=== PATIENT | male | born 1935 | race Caucasian/White ===

== ENCOUNTER 2017-09-07 20:54 | Emergency (ER) | payer OTHER, MEDICARE ==
--- NOTE | 2017-09-07 22:56 | EDPHYS ---
Physician Documentation [facility] Name: Myles Condon III Age: 81 yrs Sex: Male : 1935 Arrival Date: 09/07/2017 Time: 20:58 Bed 18 Private MD: Terrance Wang V ED Physician Chandu Che HPI: 09/08 00:10 This 81 yrs old Male presents to ER via Ambulatory with complaints of Arm jr8 Problem - Redness/swelling. 00:10 The patient or guardian complains of pain, a rash. The complaints affect the dorsal jr8 aspect of left forearm. Context: The problem was sustained at home. Onset: The symptoms/episode began/occurred acutely, 2 day(s) ago. Treatment prior to arrival includes: no previous treatment. Modifying factors: The symptoms are alleviated by nothing. the symptoms are aggravated by touching affected region . Associated signs and symptoms: Pertinent positives: erythema, pain, warmth. Severity of symptoms: At their worst the symptoms were mild, in the emergency department the symptoms are unchanged. The patient has not experienced similar symptoms in the past. The patient has not recently seen a physician. Patient stated that he started with redness to left forearm with pustulous region. Did not know if he was bit by anything or not. Concerned because it still has not gone away . Historical: - Allergies: 09/07 21:06 No Known Allergies; la1 - PMHx: 21:06 AFIB; Hyperlipidemia; Hypertension; urinary problems; la1 - Immunization history:: Adult Immunizations up to date. - Social history:: Smoking status: Patient/guardian denies using tobacco. ROS: 09/08 00:10 Eyes: Negative for injury, pain, redness, and discharge, ENT: Negative for injury, jr8 pain, and discharge, Neck: Negative for injury, pain, and swelling, Cardiovascular: Negative for chest pain, palpitations, and edema, Respiratory: Negative for shortness of breath, cough, wheezing, and pleuritic chest pain, Abdomen/GI: Negative for abdominal pain, nausea, vomiting, diarrhea, and constipation, Back: Negative for injury and pain, MS/Extremity: Negative for injury and deformity, Neuro: Negative for headache, weakness, numbness, tingling, and seizure. Skin: Positive for erythema, lesions, of the left arm. Exam: 00:10 Cardiovascular: Regular rate and rhythm with a normal S1 and S2. No gallops, murmurs, jr8 or rubs. Normal PMI, no JVD. No pulse deficits. Respiratory: Lungs have equal breath sounds bilaterally, clear to auscultation and percussion. No rales, rhonchi or wheezes noted. No increased work of breathing, no retractions or nasal flaring. MS/ Extremity: Pulses equal, no cyanosis. Neurovascular intact. Full, normal range of motion. Neuro: Awake and alert, GCS 15, oriented to person, place, time, and situation. Cranial nerves II-XII grossly intact. Motor strength 5/5 in all extremities. Sensory grossly intact. Cerebellar exam normal. Normal gait. 00:10 Skin: approximately 7.5 cm well demarcated region to left forearm of erythema. In the center is vesicles with exudate in them. No bruising or other rashes or lesion noted to the rest of patients body. Mild pain with palpation. Vital Signs: 09/07 21:06 BP 152 / 72; Pulse 50; Resp 16; Temp 98.6(TE); Pulse Ox 100% on R/A; Weight 101.6 kg; la1 Height 5 ft. 9 in. (175.26 cm); 21:06 Body Mass Index 33.08 (101.60 kg, 175.26 cm) la1 MDM: 22:30 Patient medically screened. jr8 22:55 Data reviewed: vital signs, nurses notes, and as a result, I will discharge patient. jr8 Data interpreted: Pulse oximetry: on room air is 100 %. Interpretation: normal. Counseling: I had a detailed discussion with the patient and/or guardian regarding: the historical points, exam findings, and any diagnostic results supporting the discharge/admit diagnosis, the need for outpatient follow up, a family practitioner, to return to the emergency department if symptoms worsen or persist or if there are any questions or concerns that arise at home. Administered Medications: No medications were administered Disposition: 09/08 00:18 Co-signature as Attending Physician, Chandu Che MD. jimmy Disposition: 09/07/17 22:55 Discharged to Home. Impression: Local infection of the skin and subcutaneous tissue, unspecified. - Condition is Stable. - Discharge Instructions: Abscess, Cellulitis, Rash. - Prescriptions for Keflex 500 mg Oral Capsule - take 1 capsule by ORAL route every 6 hours for 10 days; 40 capsule. - Medication Reconciliation Form, Thank You Letter, Antibiotic Education, Prescription Opioid Use form. - Follow up: Terrance Wang MD; When: 2 - 3 days; Reason: Recheck today's complaints, Continuance of care, Re-evaluation by your physician. - Problem is new. - Symptoms have improved. Signatures: Chandu Che MD MD pkl Moreno Young PA PA jr8 Gonzalez Puga RN RN la1 Sukhwinder Carpenter RN RN jd3
--- NOTE | 2017-09-07 22:56 | ER ---
Nurse's Notes [facility] Name: Myles Condon III Age: 81 yrs Sex: Male : 1935 Arrival Date: 09/07/2017 Time: 20:58 Bed 18 Private MD: Terrance Wang V Diagnosis: Local infection of the skin and subcutaneous tissue, unspecified Presentation: 09/07 21:05 Presenting complaint: Patient states: I have had an are of redness on my left forearm la1 and it is getting worse, area of redness about the size of a baseball on left forearm. Transition of care: patient was not received from another setting of care. Onset of symptoms was September 07, 2017. Care prior to arrival: None. 21:05 Method Of Arrival: Ambulatory la1 21:05 Acuity: MARLO 3 la1 Triage Assessment: 22:46 General: Appears in no apparent distress. Behavior is calm, cooperative, appropriate jd3 for age. Historical: - Allergies: 21:06 No Known Allergies; la1 - PMHx: 21:06 AFIB; Hyperlipidemia; Hypertension; urinary problems; la1 - Immunization history:: Adult Immunizations up to date. - Social history:: Smoking status: Patient/guardian denies using tobacco. Screenin:44 Abuse screen: Denies threats or abuse. Nutritional screening: No deficits noted. jd3 Tuberculosis screening: No symptoms or risk factors identified. Fall Risk None identified. Assessment: 22:39 Pain: Complains of pain in dorsal aspect of left forearm Quality of pain is described jd3 as aching, pressure. Neuro: Level of Consciousness is awake, alert, obeys commands, Oriented to person, place, time, situation. Cardiovascular: Heart tones S1 S2 present Capillary refill < 3 seconds Patient's skin is warm and dry. Respiratory: Airway is patent Respiratory effort is even, unlabored, Respiratory pattern is regular, symmetrical, Breath sounds are clear bilaterally. GI: Abdomen is round Patient currently denies diarrhea, nausea, vomiting. : No signs and/or symptoms were reported regarding the genitourinary system. EENT: No signs and/or symptoms were reported regarding the EENT system. Derm: Skin is intact, Skin is dry, Skin is normal, Skin temperature is warm Wound noted dorsal aspect of right forearm Wound is red raised with macular lesion in the center, to the left forearm. Musculoskeletal: Circulation, motion, and sensation intact. Range of motion: intact in all extremities. 23:05 Reassessment: Patient appears in no apparent distress at this time. Patient and/or jd3 family updated on plan of care and expected duration. Pain level reassessed. Patient is alert, oriented x 3, equal unlabored respirations, skin warm/dry/pink. pt reported understanding of discharge instructions, even and steady gait upon discharge. Vital Signs: 21:06 BP 152 / 72; Pulse 50; Resp 16; Temp 98.6(TE); Pulse Ox 100% on R/A; Weight 101.6 kg; la1 Height 5 ft. 9 in. (175.26 cm); 21:06 Body Mass Index 33.08 (101.60 kg, 175.26 cm) la1 ED Course: 20:58 Patient arrived in ED. am2 20:58 Terrance Wang MD is Private Physician. am2 21:05 Triage completed. la1 21:06 Arm band placed on left wrist. la1 22:30 Moreno Young PA is PHCP. jr8 22:30 Chandu Che MD is Attending Physician. jr8 22:39 Sukhwinder Carpenter RN is Primary Nurse. jd3 22:46 Patient has correct armband on for positive identification. Bed in low position. Call jd3 light in reach. Side rails up X 1. Adult w/ patient. 22:55 Terrance Wang MD is Referral Physician. jr8 23:05 No provider procedures requiring assistance completed. Patient did not have IV access jd3 during this emergency room visit. Administered Medications: No medications were administered Outcome: 22:55 Discharge ordered by . jr8 23:05 Discharged to home ambulatory, with family. jd3 23:05 Condition: stable 23:05 Discharge instructions given to patient, family, Instructed on discharge instructions, follow up and referral plans. medication usage, Demonstrated understanding of instructions, follow-up care, medications, Prescriptions given X 1. 23:07 Patient left the ED. jd3 Signatures: Moreno Young PA PA jrGonzalez Deluca RN RN la1 [employer] am2 Sukhwinder Carpenter RN RN jd3
[2017-09-07 23:11] VITALS: BP 152/72; TEMP 98.6; O2SAT 100
== END 2017-09-07 23:07 | disposition home or self-care (01) ==
LOC: ER 20:54
DX: L08.9 Local infection of the skin and subcutaneous tissue, unspecified (principal)
CPT/HCPCS: 99282

== ENCOUNTER 2018-11-07 09:51 | Observation (INO) | payer OTHER, MEDICARE ==
--- OUTSIDE RECORDS SUMMARY | 2018-11-07 09:54 | XMS REPORT ---
:1935 Author Organization [employer] Care Team Providers Name Role Phone Aaron Sorensen Provider Role Unavailable Allergies, Adverse Reactions, Alerts Substance Reaction Event Type N.K.D.A. 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 Assessment Impingement syndrome of right M75.41 Active shoulder Medications Medication Code Code Instructions Start End Status Dosage System Date Date Dutasteride [facility] [address]-86 Active not defined Centrum Silver [facility] [address]-79 Active not defined Tamsulosin HCl [facility] [address]-26 Active not defined Omeprazole [facility] 84269463933 Active not defined Biotin [facility] [address] Active not defined Simvastatin [facility] [address]-09 Active not defined Melatonin [facility] [address]60-[address]209 Active not defined Donepezil HCl [facility] [address]-64 Active not defined Sotalol HCl [facility] [address]-05 Active not defined Xarelto [facility] [address]-26 Active not defined Results No Known Results Summary Purpose [employer] Submission
--- OUTSIDE RECORDS SUMMARY | 2018-11-07 09:54 | XMS REPORT ---
:1935 Author Organization [employer] Care Team Providers Name Role Phone EllerKrish Provider Role Unavailable Allergies, Adverse Reactions, Alerts Substance Reaction Event Type N.K.D.A. 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 Medications Medication Code Code Instructions Start End Status Dosage System Date Date Tamsulosin HCl [facility] [address]-08 Active not defined Xarelto [facility] [address]-29 Active not defined Tramadol HCl [facility] 26999573412 50 MG Orally 07 September Active as directed po 6 hrs prn 2018 pain Centrum Silver [facility] [address]-99 Active not defined Sotalol HCl [facility] [address]-10 Active not defined Omeprazole [facility] 16972887518 Active not defined Simvastatin [facility] [address]-54 Active not defined Donepezil HCl [facility] [address]-52 Active not defined Melatonin [facility] 38059-[address]28 Active not defined Dutasteride [facility] [address]-21 Active not defined tylenol [facility] 0 Active not defined Biotin [facility] [address]21-[address]47 Active not defined Results No Known Results Summary Purpose [employer] Submission
--- OUTSIDE RECORDS SUMMARY | 2018-11-07 09:54 | XMS REPORT ---
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
--- OUTSIDE RECORDS SUMMARY | 2018-11-07 09:54 | XMS REPORT ---
:1935 Author Organization [employer] Care Team Providers Name Role Phone Aaron Sorensen Provider Role Unavailable Allergies, Adverse Reactions, Alerts Substance Reaction Event Type N.K.D.A. 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 Assessment Pain, joint, shoulder, right M25.511 Active Assessment Impingement syndrome of right M75.41 Active shoulder Medications Medication Code Code Instructions Start End Status Dosage System Date Date Omeprazole [facility] 89235124027 Active not defined Sotalol HCl [facility] [address]-18 Active not defined Dutasteride [facility] [address]-79 Active not defined Centrum Silver [facility] [address]-94 Active not defined Simvastatin [facility] [address]-53 Active not defined Xarelto [facility] [address]-10 Active not defined Donepezil HCl [facility] [address]-78 Active not defined Melatonin [facility] 8[address]90-02524 Active not defined Biotin [facility] [address]89-27963 Active not defined Tamsulosin HCl [facility] [address]-09 Active not defined Results Name Result Date Reference Range Unit Abnormality Flag MRI : Shoulder, right Summary Purpose [employer] Submission
--- OUTSIDE RECORDS SUMMARY | 2018-11-07 09:54 | XMS REPORT ---
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
--- OUTSIDE RECORDS SUMMARY | 2018-11-07 09:54 | XMS REPORT ---
:1935 Author Organization eClinicalWorks Care Team Providers Name Role Phone Krish Eller Provider Role Unavailable Allergies, Adverse Reactions, Alerts [...] syndrome of right M75.41 Active shoulder Assessment Pain, joint, shoulder, right M25.511 Active Medications Medication Code System Code Instructions Start Date End Date Status Dosage Sotalol HCl [facility] 76485-499 Active not defined 2-10 tylenol ND 0 Active not defined Biotin [facility] 76130-338 Active not defined 13 Dutasteride [facility] 84136-371 Active not defined 5-13 Tamsulosin HCl [facility] 05068-983 Active not defined 6-11 Omeprazole [facility] 87101-278 Active not defined 1-02 Centrum Silver [facility] 99551-781 Active not defined 1-19 Simvastatin [facility] 91624-496 Active not defined 1-04 Donepezil HCl [facility] 50652-727 Active not defined 9-03 Melatonin [facility] 23650-967 Active not defined 16 Xarelto [facility] 55201-363 Active not defined 7-10 Results No Known Results Summary Purpose [employer] Submission
--- OUTSIDE RECORDS SUMMARY | 2018-11-07 09:54 | XMS REPORT ---
[...] Medications Results No Known Results Summary Purpose [email or web address] Submission
[2018-11-07 10:44] LABS: Protime INR 1.35
[2018-11-07 10:58] LABS: ALT/SGPT 20 U/L (12-78); AST/SGOT 18 U/L (15-37); Albumin 3.1 g/dL (3.4-5.0); Alkaline Phosphatase 48 U/L (45-117); BUN Blood Urea Nitrogen 18 mg/dL (7-18); Bicarbonate 28 mmol/L (21-32); Bilirubin Direct 0.1 mg/dL (0-0.2); Bilirubin Total 0.4 mg/dL (0.2-1.0); Glucose Level 143 mg/dL (74-106); Magnesium 2.2 mg/dL (1.8-2.4); NT PRO-BNP 397 pg/mL (<450); Protein, Total 6.4 g/dL (6.4-8.2); Sodium Level 142 mmol/L (136-145); Troponin (Emerg Dept Use Only) < 0.02 ng/mL (0.0-0.045)
[2018-11-07 11:16] LABS: Absolute Lymphocytes (CBC) 1.6 K/uL (0.7-4.9); Absolute Monocytes 0.7 K/uL (0.1-1.3); Absolute Neutrophil 4.8 K/uL (1.8-8.0); Basophils % 0.3 % (0-1.3); Eosinophils % 2.5 % (0-4.4); Hematocrit 32.3 % (39.6-49.0); Lymphocytes % 21.9 % (15.3-44.8); MPV 8.7 fL (7.6-11.3); Monocytes % 9.3 % (3.3-12.3); RBC Red Blood Cell Count 3.82 M/uL (4.33-5.43)
[2018-11-07] MEDS ORDERED: NA CHLORIDE 0.9% 500 ML ONE (11:31)
--- NOTE | 2018-11-07 12:04 | RAD REPORT ---
EXAM DESCRIPTION: RAD - Chest Single View - 11/07/2018 11:43 am CLINICAL HISTORY: CHEST PAIN Chest pain. COMPARISON: Chest Pa And Lat (2 Views) dated 10/05/2018; Chest Single View dated 10/13/2016; Chest Sing le View dated 10/12/2016; CHEST SINGLE VIEW dated 11/01/2013 FINDINGS: Portable technique limits examination quality. The lungs are grossly clear. The heart is normal in size. No displaced fractures. IMPRESSION: No acute intrathoracic process suspected.
--- NOTE | 2018-11-07 16:06 | EDPHYS ---
Physician Documentation [facility] Name: Myles Condon III Age: 82 yrs Sex: Male : 1935 Arrival Date: 11/07/2018 Time: 09:54 Bed 15 Private MD: ED Physician Alfonso Da Silva HPI: 11/07 10:20 This 82 yrs old Male presents to ER via Ambulatory with complaints of Blood jmm Pressure Problem. 10:20 *2 year old male with a history of afib, hlp, htn that presents to the ED with jmm complaints of weakness, palpitations beginning this morning. Similar symptoms when diagnosed with afib with rvr, Patient denies chest pain or abdominal pain. Denies urinary symptoms. . Historical: - Allergies: 09:58 No Known Allergies; sv - Home Meds: 10:00 sotalol 80 mg Oral tab 1 tab 2 times per day [Active]; omeprazole 40 mg Oral cpDR 1 cap rb1 once daily [Active]; tamsolosin 4 mg 1 tab daily [Active]; Xarelto 20 mg oral tab 1 tab once daily [Active]; simvastatin 40 mg Oral tab 1 tab once daily [Active]; Centrum Silver oral oral [Active]; donepezil 5 mg oral tab 1 tab once daily [Active]; - PMHx: 09:58 AFIB; Hyperlipidemia; Hypertension; urinary problems; sv - Immunization history:: Adult Immunizations up to date. - Social history:: Smoking status: Patient/guardian denies using tobacco. - Ebola Screening: : Patient negative for fever greater than or equal to 101.5 degrees Fahrenheit, and additional compatible Ebola Virus Disease symptoms. ROS: 10:20 Constitutional: Positive for malaise. jmm 10:20 Cardiovascular: Positive for palpitations. 10:20 Respiratory: Positive for shortness of breath. 10:20 Abdomen/GI: Negative for abdominal pain. 10:20 Neuro: Positive for weakness. 10:20 All other systems are negative. Exam: 10:20 Constitutional: This is a well developed, well nourished patient who is awake, alert, jmm and in no acute distress. Head/Face: atraumatic. Eyes: EOMI, no conjunctival erythema appreciated ENT: Moist Mucus Membranes Neck: Trachea midline, Supple Chest/axilla: Normal chest wall appearance and motion. 10:20 Cardiovascular: Rate: tachycardic. 10:20 Respiratory: the patient does not display signs of respiratory distress, Respirations: normal, Breath sounds: are clear throughout. 10:20 Abdomen/GI: Inspection: abdomen appears normal. 10:20 Back: ROM is normal. 10:20 Musculoskeletal/extremity: ROM: no acute changes. 10:20 Skin: Appearance: Color: normal in color. 10:20 Neuro: Orientation: is normal, Mentation: is normal, Memory: 10:20 Psych: Behavior/mood is pleasant, cooperative. Vital Signs: 09:58 Pulse 113; Resp 18; Temp 97.4; Pulse Ox 99% ; Weight 104.33 kg; Height 5 ft. 9 in. sv (175.26 cm); Pain 0/10; 10:38 BP 97 / 67; Pulse 135; Resp 14; Temp 97.5(O); Pulse Ox 98% ; mh5 11:21 BP 104 / 63; Pulse 69; Resp 19; Temp 97.9(O); Pulse Ox 98% on R/A; mh5 12:48 BP 118 / 57; Pulse 48; Resp 22; Temp 97.9(O); Pulse Ox 100% on R/A; mh5 14:02 BP 99 / 58; Pulse 44; Resp 19; Temp 97.9(O); Pulse Ox 100% on R/A; mh5 14:45 BP 113 / 68; Pulse 45; Resp 16; Temp 97.9(O); Pulse Ox 100% on R/A; Pain 0/10; rb1 15:00 BP 110 / 61; Pulse 40; Resp 14; Pulse Ox 100% on R/A; rb1 16:03 BP 127 / 64; Pulse 41; Resp 12; Temp 97.8(O); Pulse Ox 98% on R/A; mh5 17:00 BP 159 / 78; Pulse 41; Resp 16; Temp 98.4(O); Pulse Ox 100% on R/A; Pain 0/10; rb1 09:58 Body Mass Index 33.96 (104.33 kg, 175.26 cm) sv 15:00 after walking rb1 MDM: 10:22 Patient medically screened. munira 15:25 Data reviewed: vital signs, nurses notes. Counseling: I had a detailed discussion with munira the patient and/or guardian regarding: the historical points, exam findings, and any diagnostic results supporting the discharge/admit diagnosis, lab results, radiology results, the need for further work-up and treatment in the hospital. ED course: Patient states feeling much better on reevaluation. Patient's HR has remained low in the ED after conversion from afib with rvr. I discussed the patient with Dr. Da Silva whom agrees with the need to observe the patient. . 16:02 ED course: I discussed the patient with Dr. Jacobsen whom accepted admission to Dr. munira Wang's service. . 11/07 10:20 Order name: Basic Metabolic Panel; Complete Time: 11:01 [facility] 11/07 10:20 Order name: CBC with Diff; Complete Time: 11:35 [facility] 11/07 10:20 Order name: LFT's; Complete Time: 11: [facility] 11/07 10:20 Order name: Magnesium; Complete Time: 11:01 [facility] 11/07 10:20 Order name: NT PRO-BNP; Complete Time: 11:01 [facility] 11/07 10:20 Order name: PT-INR; Complete Time: 11:16 [facility] 11/07 10:20 Order name: Troponin (emerg Dept Use Only); Complete Time: 11:01 [facility] 11/07 11:08 Order name: Lactate; Complete Time: 12:32 [facility] 11/07 11:08 Order name: Blood Culture Adult (2) [facility] 11/07 11:08 Order name: Procalcitonin; Complete Time: 13:04 [facility] 11/07 14:10 Order name: Urine Dipstick--Ancillary (enter results) 11/07 16:15 Order name: Basic Metabolic Panel [facility] 11/07 16:15 Order name: Basic Metabolic Panel [facility] 11/07 16:15 Order name: CBC with Automated Diff [facility] 11/07 10:20 Order name: XRAY Chest (1 view); Complete Time: 12:09 [facility] 11/07 10:20 Order name: EKG; Complete Time: 10:22 [facility] 11/07 10:20 Order name: Cardiac monitoring; Complete Time: 10:38 [facility] 11/07 10:20 Order name: EKG - Nurse/Tech; Complete Time: 10:38 [facility] 11/07 10:20 Order name: IV Saline Lock; Complete Time: 10:51 [facility] 11/07 16:15 Order name: CONS Physician Consult [facility] 11/07 16:15 Order name: Consistent Carb (ADA) [address] [facility] 11/07 16:15 Order name: EKG Electrocardiogram [facility] 11/07 16:15 Order name: EKG Electrocardiogram [facility] 11/07 16:15 Order name: EKG Electrocardiogram [facility] 11/07 16:15 Order name: EKG Electrocardiogram [facility] 11/07 16:15 Order name: CBC with Automated Diff [facility] 11/07 16:15 Order name: Troponin I [facility] 11/07 16:15 Order name: Troponin I [facility] 11/07 16:15 Order name: Troponin I [facility] 11/07 10:20 Order name: Labs collected and sent; Complete Time: 10:51 [facility] 11/07 10:20 Order name: O2 Per Protocol; Complete Time: 10:51 [facility] 11/07 10:20 Order name: O2 Sat Monitoring; Complete Time: 10:51 [facility] 11/07 10:21 Order name: Urine Dipstick-Ancillary (obtain specimen); Complete Time: 15:52 [facility] 11/07 11:40 Order name: EKG - Nurse/Tech; Complete Time: 12:31 jm Administered Medications: 11:54 Drug: NS 0.9% 500 ml Route: IV; Rate: bolus; Site: right antecubital; rb1 12:30 Follow up: IV Status: Completed infusion rb1 Disposition: 11/07/18 16:05 Hospitalization ordered by Terrance Wang for Observation. Preliminary diagnosis are Unspecified atrial fibrillation, Bradycardia, unspecified, Palpitations. - Bed requested for Telemetry/MedSurg (observation). - Status is Observation. ss - Condition is Stable. - Problem is an acute exacerbation. - Symptoms have improved. UTI on Admission? No Addendum: 11/09/2018 06:30 Co-signature as Attending Physician, Alfonso Da Silva MD I agree with the assessment and k dr plan of care. Signatures: Dispatcher [employer] [facility] Connie Sanchez, RN Alfonso Gunn MD MD kdr Mickail, Joel, PA PA [facility] Keren High RN RN Anika Bai, RN RN rb1 Oneil Jeong RN RN ja1 Namita Gonzalez Corrections: (The following items were deleted from the chart) 11/07 16:08 16:05 Hospitalization Ordered by Terrance Wang MD for Observation. Preliminary diagnosis eb is Unspecified atrial fibrillation; Bradycardia, unspecified; Palpitations. Bed requested for Telemetry/MedSurg (observation). Status is Observation. Condition is Stable. Problem is an acute exacerbation. Symptoms have improved. UTI on Admission? No. jmm 16:54 16:08 11/07/2018 16:05 Hospitalization Ordered by Terrance Wang MD for Observation. ja1 Preliminary diagnosis is Unspecified atrial fibrillation; Bradycardia, unspecified; Palpitations. Bed requested for Telemetry/MedSurg (observation). Status is Observation. Condition is Stable. Problem is an acute exacerbation. Symptoms have improved. UTI on Admission? No. eb 18:14 16:54 11/07/2018 16:05 Hospitalization Ordered by Terrance Wang MD for Observation. ss Preliminary diagnosis is Unspecified atrial fibrillation; Bradycardia, unspecified; Palpitations. Bed requested for Telemetry/MedSurg (observation). Status is Observation. Condition is Stable. Problem is an acute exacerbation. Symptoms have improved. UTI on Admission? No. ja1
--- NOTE | 2018-11-07 16:06 | ER ---
Nurse's Notes [facility] Name: Myles Condon III Age: 82 yrs Sex: Male : 1935 Arrival Date: 11/07/2018 Time: 09:54 Bed 15 Private MD: Diagnosis: Unspecified atrial fibrillation;Bradycardia, unspecified;Palpitations Presentation: 11/07 09:56 Presenting complaint: Patient states: heart palpitations, generalized weakness, sv lethargic, hypotension 90/70s started this morning. Transition of care: patient was not received from another setting of care. Onset of symptoms was November 07, 2018. Care prior to arrival: None. 09:56 Method Of Arrival: Ambulatory sv 09:56 Acuity: MARLO 3 sv 10:00 Risk Assessment: Do you want to hurt yourself or someone else? Patient reports no rb1 desire to harm self or others. Initial Sepsis Screen: Does the patient meet any 2 criteria? No. Patient's initial sepsis screen is negative. Does the patient have a suspected source of infection? No. Patient's initial sepsis screen is negative. Triage Assessment: 09:59 General: Appears in no apparent distress. comfortable, Behavior is calm, cooperative, sv appropriate for age. Pain: Denies pain. Neuro: Level of Consciousness is awake, alert, obeys commands, Oriented to person, place, time, situation, Gait is steady. Cardiovascular: Reports jaw pain Denies chest pain. Respiratory: Respiratory effort is even, unlabored, Respiratory pattern is regular, symmetrical. Historical: - Allergies: 09:58 No Known Allergies; sv - Home Meds: 10:00 sotalol 80 mg Oral tab 1 tab 2 times per day [Active]; omeprazole 40 mg Oral cpDR 1 cap rb1 once daily [Active]; tamsolosin 4 mg 1 tab daily [Active]; Xarelto 20 mg oral tab 1 tab once daily [Active]; simvastatin 40 mg Oral tab 1 tab once daily [Active]; Centrum Silver oral oral [Active]; donepezil 5 mg oral tab 1 tab once daily [Active]; - PMHx: 09:58 AFIB; Hyperlipidemia; Hypertension; urinary problems; sv - Immunization history:: Adult Immunizations up to date. - Social history:: Smoking status: Patient/guardian denies using tobacco. - Ebola Screening: : Patient negative for fever greater than or equal to 101.5 degrees Fahrenheit, and additional compatible Ebola Virus Disease symptoms. Screenin:00 Abuse screen: Denies threats or abuse. Nutritional screening: No deficits noted. rb1 Tuberculosis screening: No symptoms or risk factors identified. Fall Risk None identified. Assessment: 10:00 General: Appears in no apparent distress. comfortable, Behavior is calm, cooperative. rb1 Pain: Complains of pain in lower jaw Pain currently is 6 out of 10 on a pain scale. Neuro: Level of Consciousness is awake, alert, obeys commands, Oriented to person, place, time, situation. Neuro: Reports headache frontal area. Cardiovascular: Rhythm is irregular. Respiratory: Reports shortness of breath Airway is patent Respiratory effort is even, unlabored, Respiratory pattern is regular, symmetrical. GI: No signs and/or symptoms were reported involving the gastrointestinal system. : No signs and/or symptoms were reported regarding the genitourinary system. Derm: Skin is pink, warm \T\ dry. Musculoskeletal: Range of motion: intact in all extremities. 11:00 Reassessment: Patient appears in no apparent distress at this time. Patient and/or rb1 family updated on plan of care and expected duration. Pain level reassessed. Patient is alert, oriented x 3, equal unlabored respirations, skin warm/dry/pink. Patient states feeling better. 12:00 Reassessment: Patient appears in no apparent distress at this time. No changes from rb1 previously documented assessment. Lab is at bedside to get blood cultures. 13:00 Reassessment: Patient appears in no apparent distress at this time. Patient and/or rb1 family updated on plan of care and expected duration. Pain level reassessed. Patient is alert, oriented x 3, equal unlabored respirations, skin warm/dry/pink. Pt. is unable to give a urine specimen at this time. 14:00 Reassessment: Patient appears in no apparent distress at this time. Patient and/or rb1 family updated on plan of care and expected duration. Pain level reassessed. Patient is alert, oriented x 3, equal unlabored respirations, skin warm/dry/pink. Patient states feeling better. Patient states symptoms have improved. 14:53 Reassessment: Pt. ambulated around the nurse's station without difficulty. Denied SOB rb1 and pain. 15:53 Reassessment: Patient appears in no apparent distress at this time. Patient and/or rb1 family updated on plan of care and expected duration. Pain level reassessed. Patient is alert, oriented x 3, equal unlabored respirations, skin warm/dry/pink. Patient denies pain at this time. 16:50 Reassessment: Patient appears in no apparent distress at this time. No changes from rb1 previously documented assessment. Family at bedside. 17:30 Reassessment: Called report to RADHA Marte. Information from [facility] was given. All rb1 questions asked and answered. 17:48 Reassessment: Patient appears in no apparent distress at this time. Patient and/or rb1 family updated on plan of care and expected duration. Pain level reassessed. Patient is alert, oriented x 3, equal unlabored respirations, skin warm/dry/pink. Patient denies pain at this time. Vital Signs: 09:58 Pulse 113; Resp 18; Temp 97.4; Pulse Ox 99% ; Weight 104.33 kg; Height 5 ft. 9 in. sv (175.26 cm); Pain 0/10; 10:38 BP 97 / 67; Pulse 135; Resp 14; Temp 97.5(O); Pulse Ox 98% ; mh5 11:21 BP 104 / 63; Pulse 69; Resp 19; Temp 97.9(O); Pulse Ox 98% on R/A; mh5 12:48 BP 118 / 57; Pulse 48; Resp 22; Temp 97.9(O); Pulse Ox 100% on R/A; mh5 14:02 BP 99 / 58; Pulse 44; Resp 19; Temp 97.9(O); Pulse Ox 100% on R/A; mh5 14:45 BP 113 / 68; Pulse 45; Resp 16; Temp 97.9(O); Pulse Ox 100% on R/A; Pain 0/10; rb1 15:00 BP 110 / 61; Pulse 40; Resp 14; Pulse Ox 100% on R/A; rb1 16:03 BP 127 / 64; Pulse 41; Resp 12; Temp 97.8(O); Pulse Ox 98% on R/A; mh5 17:00 BP 159 / 78; Pulse 41; Resp 16; Temp 98.4(O); Pulse Ox 100% on R/A; Pain 0/10; rb1 09:58 Body Mass Index 33.96 (104.33 kg, 175.26 cm) sv 15:00 after walking [facility] ED Course: 09:54 Patient arrived in ED. as 09:58 Triage completed. sv 09:59 Arm band placed on. sv 10:00 Patient has correct armband on for positive identification. Bed in low position. Call rb1 light in reach. Side rails up X2. surveillance monitor on. Pulse ox on. NIBP on. 10:10 Inserted saline lock: 20 gauge in right antecubital area, using aseptic technique. rb1 Blood collected. 10:15 Anika Bai, RN is Primary Nurse. [facility] 10:19 Nino Kay PA is PHCP. [facility] 10:19 Alfonso Da Silva MD is Attending Physician. [facility] 10:37 EKG done, by ED staff, reviewed by Alfonso Da Silva MD. [facility] 11:45 XRAY Chest (1 view) In Process Unspecified. EDMI 15:16 EKG done, by ED staff, reviewed by Nino SPENCE. [facility] 16:03 Terrance Wang MD is Hospitalizing Provider. [facility] 18:00 No provider procedures requiring assistance completed. Patient admitted, IV remains in rb1 place. Administered Medications: 11:54 Drug: NS 0.9% 500 ml Route: IV; Rate: bolus; Site: right antecubital; rb1 12:30 Follow up: IV Status: Completed infusion rb1 Outcome: 16:05 Decision to Hospitalize by Provider. [facility] 18:00 Patient left the ED. [facility] 18:00 Admitted to Tele accompanied by tech, family with patient, via wheelchair, room 428, [facility] with chart, Report called to RADHA Marte 18:00 Condition: stable 18:00 Instructed on the need for admit. Signatures: Dispatcher [employer] EDConnie Wilson RN RN Nino Kay PA PA jmm Martinez, Amelia as Smirch, Shelby, RN RN Anika Bai, RADHA GARCIA [facility] Lila Moore [facility] Corrections: (The following items were deleted from the chart) 19:54 18:14 Patient left the ED. [facility]
[2018-11-07] MEDS ORDERED: ONDANSETRON 4 MG/2 ML VIAL IV PRN (16:11)
--- NOTE | 2018-11-07 16:41 | EKG ---
Test Date: 2018-11-07 Test Time: 15:12:01 Clinic Director: ILEANA MEASUREMENT RESULTS: Intervals: Rate: 41 WY: 176 QRSD: 124 QT: 506 QTc: 417 [place]: P: 6 WY: 176 QRS: 11 T: 18 INTERPRETIVE STATEMENTS: Marked sinus bradycardia Nonspecific intraventricular conduction delay Abnormal ECG Compared to ECG 11/07/2018 12:04:49 Intraventricular conduction delay now present Myocardial infarct finding no longer present Electronically Signed On 11-08-18 09:47:12 CDT by Tyler Robertson
--- NOTE | 2018-11-07 16:42 | EKG ---
Test Date: 2018-11-07 Test Time: 10:08:10 [employer]: ILEANA MEASUREMENT RESULTS: Intervals: Rate: 105 [place]: QRSD: 120 QT: 318 QTc: 420 [place]: P: NV: QRS: -3 T: 26 INTERPRETIVE STATEMENTS: Atrial fibrillation with rapid ventricular response Nonspecific intraventricular conduction delay Abnormal ECG Compared to ECG 10/13/2016 06:55:29 Intraventricular conduction delay now present Electronically Signed On 11-07-18 16:41:17 CDT by Tyler Robertson
[2018-11-07 20:09] LABS: Urine Blood NEGATIVE (NEG); Urine Glucose NEGATIVE (NEG); Urine Protein NEGATIVE (NEG)
--- NOTE | 2018-11-07 21:52 | P.HP ---
Certification for Inpatient Patient admitted to: Observation With expected LOS: <2 Midnights Practitioner: I am a practitioner with admitting privileges, knowledge of patient current condition, hospital course, and medical plan of care. Services: Services provided to patient in accordance with Admission requirements found in Title 42 Section 412.3 of the Code of Federal Regulations Patient History Date of Service: 11/07/18 Reason for admission: PALPITATIONS History of Present Illness: MR. DOUGLAS WOKE UP THIS AM WITH PALPITATIONS, GOT FATIGUED AND SO CAME TO ER , HAD A FIB WITH RVR. HE ALREADY IS ON SOTALOL 80 MG PO BID FOR A FIB. HE IS FEELING GREAT NOW. Allergies No Known Allergies Allergy (Verified 10/12/16 15:43) Home Medications: Omeprazole [Prilosec] 40 mg PO DAILY 01/29/16 Simvastatin [Zocor*] 40 mg PO BEDTIME 01/29/16 Multivit-Min/FA/Lycopen/Lutein [Centrum Silver Men Tablet] 1 each PO DAILY 10/12 Rivaroxaban [Xarelto*] 20 mg PO DAILY AT SUPPER #30 tablet 10/13/16 Sotalol HCl [Betapace*] 80 mg PO BID 6AM 6PM #60 tab 10/13/16 Tamsulosin [Flomax*] 0.4 mg PO DAILY cap 10/13/16 Donepezil HCl 5 mg PO DAILY 11/07/18 - Past Medical/Surgical History Diabetic: No -: A-fib -: hyperlipidemia -: enlarged prostate -: appy -: buck -: hemorrhoidectomy -: right knee replacement - Social History Alcohol use: No CD- Drugs: No Caffeine use: No Review of Systems 10-point ROS is otherwise unremarkable Physical Examination - Vital Signs Temperature: 97.4 F Blood Pressure: 119/51 Pulse: 51 Respirations: 16 Pulse Ox (%): 100 - Physical Exam General: Alert, In no apparent distress HEENT: Atraumatic, PERRLA, Mucous membr. moist/pink, EOMI, Sclerae nonicteric Neck: Supple, 2+ carotid pulse no bruit, No LAD, Without JVD or thyroid abnormality Respiratory: Clear to auscultation bilaterally, Normal air movement Cardiovascular: Regular rate/rhythm, Normal S1 S2 Gastrointestinal: Normal bowel sounds, No tenderness Musculoskeletal: No tenderness Integumentary: No rashes Neurological: Normal gait, Normal speech, Normal strength at 5/5 x4 extr, Normal tone, Normal affect Lymphatics: No axilla or inguinal lymphadenopathy - Studies Laboratory Data (last 24 hrs) 11/07/18 10:10: PT 15.7 H, INR 1.35 11/07/18 10:10: WBC 7.3, Hgb 10.2 L, Hct 32.3 L, Plt Count 282 11/07/18 10:10: Sodium 142, Potassium 4.0, BUN 18, Creatinine 1.10, Glucose 143 H, Magnesium 2.2, Total Bilirubin 0.4, AST 18, ALT 20, Alkaline Phosphatase 48 Assessment and Plan - Problems (Diagnosis) (1) Atrial fibrillation Current Visit: No Status: Chronic Plan: HE IS ALREADY ON BETAPACE AND XARELTO. WE MAY HAVE TO RAISE BETAPACE TO 120 MG PO BID. REAMER HAND HAS BEEN CONSULTED. IN THE PM WHEN I SAW HIM HIS HEART RATE WAS 60 AND IS VERY STABLE. Qualifiers: Atrial fibrillation type: paroxysmal Qualified Code(s): I48.0 - Paroxysmal atrial fibrillation - Advance Directives Does patient have a Living Will: No Does patient have a Durable POA for Healthcare: No
[2018-11-07 22:00] VITALS: BMI 34.0
[2018-11-08 06:05] LABS: Potassium 4.1 mmol/L (3.5-5.1)
[2018-11-08 06:09] LABS: Absolute Lymphocytes (CBC) 1.6 K/uL (0.7-4.9); Absolute Monocytes 0.7 K/uL (0.1-1.3); Absolute Neutrophil 5.4 K/uL (1.8-8.0); Basophils % 0.3 % (0-1.3); Eosinophils % 2.8 % (0-4.4); Hematocrit 27.7 % (39.6-49.0); Lymphocytes % 20.2 % (15.3-44.8); MPV 8.6 fL (7.6-11.3); Monocytes % 9.3 % (3.3-12.3); RBC Red Blood Cell Count 3.29 M/uL (4.33-5.43)
[2018-11-08] MEDS ORDERED: ASPIRIN EC 81 MG TAB PO SCH (09:00)
--- NOTE | 2018-11-08 09:48 | EKG ---
Test Date: 2018-11-07 Test Time: 12:04:49 Athletic Director: ILEANA MEASUREMENT RESULTS: Intervals: Rate: 55 W[place]: 188 QRSD: 118 QT: 444 QTc: 424 [place]: P: 13 [place]: 188 QRS: 1 T: 16 INTERPRETIVE STATEMENTS: Sinus bradycardia Low voltage QRS Abnormal ECG Compared to ECG 11/07/2018 10:08:10 Low QRS voltage now present Atrial fibrillation no longer present Intraventricular conduction delay no longer present Electronically Signed On 11-08-18 09:48:06 CDT by Tyler Robertson
[2018-11-08 12:08] VITALS: BP 145/68; TEMP 97.6
[2018-11-08 12:09] LABS: Hematocrit 29.9 % (39.6-49.0); MPV 8.8 fL (7.6-11.3); RBC Red Blood Cell Count 3.56 M/uL (4.33-5.43)
[2018-11-08 13:50] VITALS: O2SAT 99
--- NOTE | 2018-11-08 16:32 | CON ---
Reason For Consult: Atrial fib. History Of Present Illness: Mr. Condon started feeling his heart beat irregularly. He felt lighthead ed, out of breath, came to the ER after having this for about 4 hours at home, spontaneously went int o sinus rhythm. There was no shock or administration of any other meds. Mr. Condon has had AFib befo re, but he has not had any spell of AFib in the past year other than the one that brought him to the hospital, now he is back in sinus rhythm. He does not have coronary heart disease or valvular heart disease or myocardial disease. He has paroxysmal atrial fib. Medications: He takes Betapace 80 b.i.d. and Xarelto 20 mg per day. Assessment/plan: Since he has been in the hospital, enzymes are normal. Procalcitonins are normal. He has had sinus bradycardia, but no other abnormality. His hemoglobin was a little bit low when he came in, and when repeated, it had fallen some, but the patient does not have any evidence of bleedi ng. I am going to request that a stool guaiac be checked and that we get a CBC without diff today so me hours after the a.m. blood test is drawn, and see if he is really having a fall in hematocrit. If so, he would need to stay and find out why that is really there. Regarding his atrial fibrillation, I think he is stable enough to go home. I am not worried about his heart rate being in the 40s. He is asymptomatic for it and we could consider cutting the dose of sotalol to 40 b.i.d., but I would c ontinue the outpatient dose for now. If his atrial fibrillation becomes more difficult to control, we can refer him for an atrial fibrillation ablation. SE/COBY Voice ID: [id number] Report ID: [id number]
[2018-11-08] MEDS ORDERED: RIVAROXABAN 20 MG TABLET PO SCH (17:00)
--- NOTE | 2018-11-08 17:35 | P.DS ---
Admission Date: 11/07/18 Discharge Date: 11/08/18 Disposition: ROUTINE DISCHARGE Discharge Condition: FAIR Reason for Admission: PALPITATIONS - Problems (1) Atrial fibrillation Current Visit: No Status: Chronic Qualifiers: Atrial fibrillation type: paroxysmal Qualified Code(s): I48.0 - Paroxysmal atrial fibrillation Brief History of Present Illness: MR. DOUGLAS WOKE UP THIS AM WITH PALPITATIONS, GOT FATIGUED AND SO CAME TO ER , HAD A FIB WITH RVR. HE ALREADY IS ON SOTALOL 80 MG PO BID FOR A FIB. HE IS FEELING GREAT NOW. MR. DOUGLAS IS DOING GOOD. HE HAS NO SYMPTOMS. HE HAS MILD LOW HG AND GUAIAC IS POSITIVE. WE WILL FU ON THIS OUTPATIENT. Vital Signs/Physical Exam: Temp Pulse Resp BP Pulse Ox 97.6 F 42 L 22 H 145/68 H 99 11/08/18 12:00 11/08/18 12:00 11/08/18 12:00 11/08/18 12:00 11/08/18 12:00 Laboratory Data at Discharge: WBC 7.7 K/uL (4.3-10.9) 11/08/18 11:54 Hgb 9.9 g/dL (13.6-17.9) L 11/08/18 11:54 Hct 29.9 % (39.6-49.0) L 11/08/18 11:54 Plt Count 262 K/uL (152-406) 11/08/18 11:54 PT 15.7 SECONDS (9.5-12.5) H 11/07/18 10:10 INR 1.35 11/07/18 10:10 Sodium 144 mmol/L (136-145) 11/08/18 05:20 Potassium 4.1 mmol/L (3.5-5.1) 11/08/18 05:20 BUN 18 mg/dL (7-18) 11/08/18 05:20 Creatinine 0.99 mg/dL (0.55-1.3) 11/08/18 05:20 Glucose 93 mg/dL (74-106) 11/08/18 05:20 Magnesium 2.2 mg/dL (1.8-2.4) 11/07/18 10:10 Total Bilirubin 0.4 mg/dL (0.2-1.0) 11/07/18 10:10 AST 18 U/L (15-37) 11/07/18 10:10 ALT 20 U/L (12-78) 11/07/18 10:10 Alkaline Phosphatase 48 U/L (45-117) 11/07/18 10:10 Troponin I 0.02 ng/mL (0.0-0.045) 11/08/18 00:03 Home Medications: Omeprazole [Prilosec] 40 mg PO DAILY 01/29/16 Simvastatin [Zocor*] 40 mg PO BEDTIME 01/29/16 Rivaroxaban [Xarelto*] 20 mg PO DAILY AT SUPPER #30 tablet 10/13/16 Sotalol HCl [Betapace*] 80 mg PO BID 6AM 6PM #60 tab 10/13/16 Tamsulosin [Flomax*] 0.4 mg PO DAILY cap 10/13/16 Donepezil HCl 5 mg PO DAILY 11/07/18 Followup: Terrance Wang MD [Primary Care Provider] - (call to schedule appointment)
[2018-11-08] MEDS ORDERED: SOTALOL HCL 80 MG TAB PO SCH (18:00)
[2018-11-08] MEDS ORDERED: HOME MED 1 EA UNK (Simvastatin [Zocor*] 40 MG) PO SCH (21:00)
[2018-11-08] MEDS ORDERED: DONEPEZIL HCL 5 MG TAB PO SCH (21:00)
[2018-11-08] MEDS ORDERED: ATORVASTATIN 20 MG TAB PO SCH (21:00)
[2018-11-09] MEDS ORDERED: PANTOPRAZOLE 40MG TABLET PO SCH (07:30)
[2018-11-09] MEDS ORDERED: HOME MED 1 EA UNK (Omeprazole [Prilosec] 40 MG) PO SCH (09:00)
== END 2018-11-08 15:20 | disposition home or self-care (01) ==
LOC: ER 09:51 → ERHOLD 16:10 → 4TH 17:35
PROVIDERS: ADMIT Internal Medicine; ATTEND Internal Medicine
DX: I48.0 Paroxysmal atrial fibrillation (principal); R19.5 Other fecal abnormalities; Z96.651 Presence of right artificial knee joint; Z79.01 Long term (current) use of anticoagulants
CPT/HCPCS: 93005 ×3; 87040 ×2; 85025 ×2; 80048 ×2; 36415; 83735; 82274; 85610; 80076; 83605; 81003; 85027; 84484 ×3; 84145; 83880; 71045; 96360; 99285; G0378 ×2

== ENCOUNTER 2020-02-12 08:30 | Emergency (ER) | payer OTHER, MEDICARE ==
--- OUTSIDE RECORDS SUMMARY | 2020-02-12 08:33 | XMS REPORT ---
:1935 Author Organization e[employer] Care Team Providers Name Role Phone Aaron Sorensen Provider Role Unavailable Allergies, Adverse Reactions, Alerts Substance Reaction Event Type N.K.D.A. 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 Active shoulder Problem Arthritis of knee, left M17.12 Acti ve Assessment Pain in joint of left knee M25.562 A ctive Assessment Arthritis of knee, left M17.12 Acti ve Problem Pain, joint, shoulder, right M25.511 Active Medications Medication Code Code Instructions Start End Status Dosage System Date Date Xarelto [facility] [address]-85 Active not defined Biotin [facility] 16937-66099 Active not defined Melatonin [facility] 15[address]-74836 Active not defined Dutasteride [facility] [address]-90 Active not defined Omeprazole [facility] [id number] Active not defined Sotalol HCl [facility] [address]-21 Active not defined Donepezil HCl [facility] [address]-61 Active not defined Centrum Silver [facility] [address]-59 Active not defined Simvastatin [facility] 0 Active not defined Tamsulosin HCl [facility] [address]-48 Active not defined Results No Known Results Summary Purpose eClinicalWorks Submission
--- OUTSIDE RECORDS SUMMARY | 2020-02-12 08:33 | XMS REPORT | Continuity of Care Document ---
:1935 Author Organization [facility] t Address [address] [place] [address] Care Team Providers Name Role Phone Unavailable Unavailable Unavailable Problems Condition Condition Condition Status Onset Resolution Last Treating Co mments Source Name Details Category Date Date Treatment Clinician Date Impingemen Impingemen Problem Active [facility] t syndrome t syndrome [facility] - of right of right [facility] shoulder [facility] Pain, Pain, Problem Active [facility], shoulder, Aramis aguilar right right l [facility] Primary Primary Problem Active [facility] osteoarthr osteoarthr [facility] - itis, itis, Memoria right right l shoulder shoulder Outpat i ent Clinics Arthritis Arthritis Diagnosis Active [facility], [facility], [facility] Pain in Pain in Diagnosis [facility] knee left knee [facility] Allergies, Adverse Reactions, Alerts This patient has no known allergies or adverse reactions. Medications Ordered Filled Start Stop Current Ordering Indication Dosage Frequency Signature Comments Components Source Medication Medication Date Date Medication? Clinician (SIG) Name Name Tamsulosin Tamsulosin Yes Aaron not [facility] HCl HCl [facility]nsen defined [facility] Centrum Centrum Yes Aaron not [facility] Silver Silver Sorensen defined [facility] Sotalol HCl Sotalol HCl Yes Aaron not [facility]nsen defined [facility] Omeprazole Omeprazole Yes Aaron not [facility]en defined [facility] Melatonin Melatonin Yes Aaron not [facility] Biotin Biotin Yes Aaron not [facility] defined [facility] Xarelto Xarelto Yes Aaron not [facility] Dutasteride Dutasteride Yes Aaron not [facility] defined [facility] Donepezil Donepezil Yes Aaron not [facility] HCl HCl S[facility]en defined [facility] Simvastatin Simvastatin Yes Aaron not [facility] Sorensen defined [facility] Procedures This patient has no known procedures. Encounters Start End Encounter Admission Attending Care Care Encounter Source Date/Time Date/Time Type Type Clinicians Facility Department ID 2019-12-16 2019-12-16 [facility] [id number] [facility] 09[facility] 09[facility] 2018-10-08 2018-10-08 [facility] [id number] [facility] 09:[facility]00 09:[facility] 2018-09-29 2018-09-29 [facility] [id number] [facility] 09:20[facility]00 09:20[facility]00 [facility] 2018-09-24 2018-09-24 [facility] [id number] [facility] 15:04:00 15:04:00 [facility] 2018-09-24 2018-09-24 [facility] [id number] [facility] 10:00:00 10:00:00 [facility] 2018-09-10 2018-09-10 [facility] [id number] 13[facility]30:00 13:30:00 [facility] 2018-09-08 2018-09-08 [facility] [id number] [facility] 15:57:00 15:57:00 [facility] 2018-08-31 2018-08-31 Outpatient Ingrid Rubalcava [id number] [facility] 15:00:00 15:00:00 [facility] Results This patient has no known results.
[2020-02-12 09:48] LABS: Absolute Lymphocytes (CBC) 1.3 K/uL (0.7-4.9); Basophils % 0.4 % (0-1.3); Hematocrit 35.2 % (39.6-49.0); Lymphocytes % 13.8 % (15.3-44.8); MPV 8.5 fL (7.6-11.3); RBC Red Blood Cell Count 3.68 M/uL (4.33-5.43)
[2020-02-12] MEDS ORDERED: ACETAMINOPHEN 500 MG TAB ONE (09:52)
[2020-02-12 10:12] LABS: ALT/SGPT 20 U/L (12-78); AST/SGOT 14 U/L (15-37); Albumin 3.2 g/dL (3.4-5.0); Alkaline Phosphatase 56 U/L (45-117); BUN Blood Urea Nitrogen 24 mg/dL (7-18); Bicarbonate 32 mmol/L (21-32); Bilirubin Total 0.8 mg/dL (0.2-1.0); Glucose Level 107 mg/dL (74-106); Potassium 4.2 mmol/L (3.5-5.1); Protein, Total 6.5 g/dL (6.4-8.2); Sodium Level 141 mmol/L (136-145); Troponin (Emerg Dept Use Only) < 0.02 ng/mL (0.0-0.045)
--- NOTE | 2020-02-12 10:33 | RAD REPORT ---
EXAM DESCRIPTION: RAD - Chest Single View - 02/12/2020 10:22 am CLINICAL HISTORY: CHEST PAIN Chest pain. COMPARISON: Chest Single View dated 11/07/2018; Chest Pa And Lat (2 Views) dated 10/05/2018; Chest Sing le View dated 10/13/2016; Chest Single View dated 10/12/2016 FINDINGS: Portable technique limits examination quality. The lungs are grossly clear. The heart is upper limit of normal in size. No displaced fractures. IMPRESSION: No acute intrathoracic process suspected.
--- NOTE | 2020-02-12 10:38 | ER ---
Nurse's Notes [facility] Name: Myles Condon III Age: 84 yrs Sex: Male : 1935 Arrival Date: 02/12/2020 Time: 08:31 Bed 17 Private MD: Diagnosis: Adverse effects, not elsewhere classified-vaccinesand other biological substances, initial encounter;Bradycardia, unspecified Presentation: 02/11 08:43 Chief complaint: Patient states: tremendous amount of pain in left arm and shoulder, iw had a flu shot yesterday and that might be what it is, pain started in middle of night. Coronavirus screen: At this time, the client does not indicate any symptoms associated with coronavirus-19. Ebola Screen: Patient negative for fever greater than or equal to 101.5 degrees Fahrenheit, and additional compatible Ebola Virus Disease symptoms Patient denies exposure to infectious person. Patient denies travel to an Ebola-affected area in the 21 days before illness onset. No symptoms or risks identified at this time. Initial Sepsis Screen: Does the patient meet any 2 criteria? No. Patient's initial sepsis screen is negative. Does the patient have a suspected source of infection? No. Patient's initial sepsis screen is negative. Risk Assessment: Do you want to hurt yourself or someone else? Patient reports no desire to harm self or others. Onset of symptoms was February 11, 2020. 08:43 Method Of Arrival: Ambulatory iw 08:43 Acuity: MARLO 3 iw Historical: - Allergies: 08:47 No Known Allergies; iw - Home Meds: 08:47 sotalol 20 mg Oral 2 times per day [Active]; omeprazole 40 mg Oral cpDR 1 cap once iw daily [Active]; tamsulosin 0.4 mg oral cp24 1 cap once daily [Active]; Xarelto 20 mg Oral tab 1 tab once daily [Active]; simvastatin 40 mg oral tab once daily [Active]; Centrum Silver Oral daily [Active]; - PMHx: 08:47 AFIB; Hyperlipidemia; Hypertension; urinary problems; iw - PSHx: 08:47 Tonsillectomy; Appendectomy; Knee surgery; hemorrhoid; Cholecystectomy; iw - Immunization history:: Adult Immunizations up to date. - Social history:: Smoking status: Patient/guardian denies using tobacco, but has a distant history of tobacco abuse. - Family history:: not pertinent. Screenin:50 Abuse screen: Denies threats or abuse. Nutritional screening: No deficits noted. rb1 Tuberculosis screening: No symptoms or risk factors identified. Fall Risk None identified. Assessment: 08:50 General: Appears in no apparent distress. Behavior is calm, cooperative, Denies fever, rb1 feeling ill. General: Pt reports that he received a flu shot yesterday and now his left arm hurts.. Pain: Complains of pain in left arm Pain currently is 6 out of 10 on a pain scale. Pain began last night. Neuro: Level of Consciousness is awake, alert, obeys commands, Oriented to person, place, time, situation. Cardiovascular: Capillary refill < 3 seconds. Respiratory: Airway is patent Respiratory effort is even, unlabored, Respiratory pattern is regular, symmetrical. GI: No signs and/or symptoms were reported involving the gastrointestinal system. : No signs and/or symptoms were reported regarding the genitourinary system. Derm: Skin is pink, warm \T\ dry. 09:50 Reassessment: Patient appears in no apparent distress at this time. No changes from rb1 previously documented assessment. 10:39 Reassessment: Pt. got out of the bed to sit in the bedside chair. rb1 11:06 Reassessment: Called pt. Jagruti at [phone] to let her know that the pt. was being rb1 discharged. Vital Signs: 08:43 BP 130 / 61; Pulse 44; Resp 16; Temp 97.7; Pulse Ox 98% ; Weight 102.51 kg; Height 5 iw ft. 9 in. (175.26 cm); Pain 7/10; 09:50 BP 144 / 61; Pulse 40; Resp 17; Pulse Ox 99% ; rb1 10:48 BP 143 / 65; Pulse 41; Resp 17; Pulse Ox 98% ; rb1 08:43 Body Mass Index 33.37 (102.51 kg, 175.26 cm) iw ED Course: 08:31 Patient arrived in ED. ds1 08:45 Triage completed. iw 08:48 Arm band placed on. iw 08:50 Patient has correct armband on for positive identification. Bed in low position. Call rb1 light in reach. Side rails up X 1. Pulse ox on. NIBP on. Warm blanket given. 08:51 Wesley Quigley MD is Attending Physician. roverto 08:55 Anika Bai, RN is Primary Nurse. rb1 09:30 Inserted saline lock: 22 gauge in right antecubital area, using aseptic technique. rb1 Blood collected. 10:22 Chest Single View XRAY In Process Unspecified. EDMS 11:24 No provider procedures requiring assistance completed. IV discontinued, intact, rb1 bleeding controlled, No redness/swelling at site. Pressure dressing applied. Administered Medications: 09:44 Drug: Tylenol 1000 mg Route: PO; rb1 10:30 Follow up: Response: No adverse reaction; Pain is decreased rb1 11:00 Drug: Pepcid 20 mg Route: IVP; Site: right antecubital; rb1 11:15 Follow up: Response: No adverse reaction rb1 11:00 Drug: Benadryl 25 mg Route: IVP; Site: right antecubital; rb1 11:15 Follow up: Response: No adverse reaction rb1 Outcome: 10:38 Discharge ordered by . [facility] 11:24 Discharged to home via wheelchair, with family. rb1 11:24 Condition: stable 11:24 Discharge instructions given to patient, Instructed on discharge instructions, follow up and referral plans. medication usage, Demonstrated understanding of instructions, follow-up care, medications, Prescriptions given X 2. 11:26 Patient left the ED. rb1 Signatures: Dispatcher [employer] Wesley Mora MD MD cha Sanford, Demi ds1 Connie Middleton, RN RN iw Anika Bai, RN RN rb1
--- NOTE | 2020-02-12 10:38 | EDPHYS ---
Physician Documentation [facility] Name: Myles Condon III Age: 84 yrs Sex: Male : 1935 Arrival Date: 02/12/2020 Time: 08:31 Bed 17 Private MD: Wesley Marroquin HPI: 02/11 09:07 This 84 yrs old Male presents to ER via Ambulatory with complaints of L Arm roverto Pain. 09:07 The patient or guardian complains of decreased range of motion. left shoulder. Context: roverto The problem was sustained at an unknown site, resulted from flu shot x 1 day ago. Onset: The symptoms/episode began/occurred 1 day(s) ago. Modifying factors: the symptoms are alleviated by remaining still, The symptoms are aggravated by movement. Associated signs and symptoms: The patient has no apparent associated signs or symptoms. The patient or guardian complains of decreased range of motion, pain, that is acute. The complaints affect the anterior aspect of left shoulder and posterior aspect of left shoulder. Context: The problem was sustained at home, at a flu shot yesterday. Historical: - Allergies: 08:47 No Known Allergies; iw - Home Meds: 08:47 sotalol 20 mg Oral 2 times per day [Active]; omeprazole 40 mg Oral cpDR 1 cap once iw daily [Active]; tamsulosin 0.4 mg oral cp24 1 cap once daily [Active]; Xarelto 20 mg Oral tab 1 tab once daily [Active]; simvastatin 40 mg oral tab once daily [Active]; Centrum Silver Oral daily [Active]; - PMHx: 08:47 AFIB; Hyperlipidemia; Hypertension; urinary problems; iw - PSHx: 08:47 Tonsillectomy; Appendectomy; Knee surgery; hemorrhoid; Cholecystectomy; iw - Immunization history:: Adult Immunizations up to date. - Social history:: Smoking status: Patient/guardian denies using tobacco, but has a distant history of tobacco abuse. - Family history:: not pertinent. ROS: 09:07 Constitutional: Negative for fever, chills, and weight loss, Eyes: Negative for injury, roverto pain, redness, and discharge, ENT: Negative for injury, pain, and discharge, Neck: Negative for injury, pain, and swelling, Cardiovascular: Negative for chest pain, palpitations, and edema, Respiratory: Negative for shortness of breath, cough, wheezing, and pleuritic chest pain, Abdomen/GI: Negative for abdominal pain, nausea, vomiting, diarrhea, and constipation, Back: Negative for injury and pain, : Negative for injury, bleeding, discharge, and swelling, Skin: Negative for injury, rash, and discoloration, Neuro: Negative for headache, weakness, numbness, tingling, and seizure, Psych: Negative for depression, anxiety, suicide ideation, homicidal ideation, and hallucinations, Allergy/Immunology: Negative for hives, rash, and allergies, Endocrine: Negative for neck swelling, polydipsia, polyuria, polyphagia, and marked weight changes, Hematologic/Lymphatic: Negative for swollen nodes, abnormal bleeding, and unusual bruising. 09:07 MS/extremity: Positive for decreased range of motion, erythema, pain, swelling, tenderness, of the anterior aspect of left shoulder and posterior aspect of left shoulder. Exam: 09:07 Constitutional: This is a well developed, well nourished patient who is awake, alert, roverto and in no acute distress. Head/Face: Normocephalic, atraumatic. Eyes: Pupils equal round and reactive to light, extra-ocular motions intact. Lids and lashes normal. Conjunctiva and sclera are non-icteric and not injected. Cornea within normal limits. Periorbital areas with no swelling, redness, or edema. ENT: Nares patent. No nasal discharge, no septal abnormalities noted. Tympanic membranes are normal and external auditory canals are clear. Oropharynx with no redness, swelling, or masses, exudates, or evidence of obstruction, uvula midline. Mucous membranes moist. Neck: Trachea midline, no thyromegaly or masses palpated, and no cervical lymphadenopathy. Supple, full range of motion without nuchal rigidity, or vertebral point tenderness. No Meningismus. Chest/axilla: Normal chest wall appearance and motion. Nontender with no deformity. No lesions are appreciated. Cardiovascular: Regular rate and rhythm with a normal S1 and S2. No gallops, murmurs, or rubs. Normal PMI, no JVD. No pulse deficits. Respiratory: Lungs have equal breath sounds bilaterally, clear to auscultation and percussion. No rales, rhonchi or wheezes noted. No increased work of breathing, no retractions or nasal flaring. Abdomen/GI: Soft, non-tender, with normal bowel sounds. No distension or tympany. No guarding or rebound. No evidence of tenderness throughout. Back: No spinal tenderness. No costovertebral tenderness. Full range of motion. Skin: Warm, dry with normal turgor. Normal color with no rashes, no lesions, and no evidence of cellulitis. Neuro: Awake and alert, GCS 15, oriented to person, place, time, and situation. Cranial nerves II-XII grossly intact. Motor strength 5/5 in all extremities. Sensory grossly intact. Cerebellar exam normal. Normal gait. Psych: Awake, alert, with orientation to person, place and time. Behavior, mood, and affect are within normal limits. 09:07 Musculoskeletal/extremity: ROM: intact in all extremities, full active range of motion, Circulation is intact in all extremities. Sensation intact. Compartment Syndrome exam of affected extremity: is normal. DVT Exam: negative Homans' sign noted on exam, no appreciated bluish discoloration, no erythema, no increased warmth, pain, swelling, tenderness. 09:49 ECG was reviewed by the Attending Physician. [facility] Vital Signs: 08:43 BP 130 / 61; Pulse 44; Resp 16; Temp 97.7; Pulse Ox 98% ; Weight 102.51 kg; Height 5 iw ft. 9 in. (175.26 cm); Pain 7/10; 09:50 BP 144 / 61; Pulse 40; Resp 17; Pulse Ox 99% ; rb1 10:48 BP 143 / 65; Pulse 41; Resp 17; Pulse Ox 98% ; rb1 08:43 Body Mass Index 33.37 (102.51 kg, 175.26 cm) iw MDM: 08:51 Patient medically screened. [facility] 09:07 Differential diagnosis: DJD, tendonitis. Data reviewed: vital signs, nurses notes, lab [facility] test result(s), EKG, radiologic studies, plain films. 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 Test interpretation: by ED physician or midlevel provider: ECG, plain radiologic studies. Counseling: I had a detailed discussion with the patient and/or guardian regarding: the historical points, exam findings, and any diagnostic results supporting the discharge/admit diagnosis, lab results, radiology results. 09:21 ED course: pt informed of findings, will follow up. [facility] 10:39 ED course: pt to follow up, return if worsens. [facility] 02/11 09:06 Order name: CBC with Diff; Complete Time: 10:03 [facility] 02/11 09:06 Order name: Comprehensive Metabolic Panel; Complete Time: 10:34 [facility] 02/11 09:06 Order name: Troponin (emerg Dept Use Only); Complete Time: 10:34 [facility] 02/11 09:06 Order name: Chest Single View XRAY; Complete Time: 10:34 [facility] 02/11 09:06 Order name: EKG; Complete Time: 09:07 [facility] 02/11 09:06 Order name: EKG - Nurse/Tech; Complete Time: 09:37 [facility] 02/11 09:23 Order name: Sling; Complete Time: 10:51 [facility] EC:49 Rate is 41 beats/min. Rhythm is regular. QRS [place] is Normal. DC interval is normal. QRS roverto interval is normal. QT interval is normal. No Q waves. T waves are Normal. No ST changes noted. Clinical impression: Sinus bradycardia and No evidence of ischemia. Interpreted by me. Reviewed by me. Administered Medications: 09:44 Drug: Tylenol 1000 mg Route: PO; rb1 10:30 Follow up: Response: No adverse reaction; Pain is decreased rb1 11:00 Drug: Pepcid 20 mg Route: IVP; Site: right antecubital; rb1 11:15 Follow up: Response: No adverse reaction rb1 11:00 Drug: Benadryl 25 mg Route: IVP; Site: right antecubital; rb1 11:15 Follow up: Response: No adverse reaction rb1 Disposition: 02/12/20 10:38 Discharged to Home. Impression: Adverse effects, not elsewhere classified - vaccinesand other biological substances, initial encounter, Bradycardia, unspecified. - Condition is Stable. - Discharge Instructions: Bradycardia, Adult, Musculoskeletal Pain. - Prescriptions for Benadryl 25 mg Oral Capsule - take 1 capsule by ORAL route every 6 hours As needed; 30 tablet. Pepcid 20 mg Oral Tablet - take 1 tablet by ORAL route every 12 hours for 10 days; 20 tablet. - Medication Reconciliation Form, Thank You Letter, Antibiotic Education, Prescription Opioid Use form. - Follow up: Private Physician; When: 2 - 3 days; Reason: Recheck today's complaints, Continuance of care, Re-evaluation by your physician. - Problem is new. - Symptoms have improved. Signatures: Dispatcher [employer] EDWesley Florez MD MD cha Williams, Irene, RN RN iw Anika Bai, RN RN rb1 Corrections: (The following items were deleted from the chart) 10:40 10:38 02/12/2020 10:38 Discharged to Home. Impression: Adverse effects, not elsewhere roverto classified - vaccinesand other biological substances, initial encounter. Condition is Stable. Forms are Medication Reconciliation Form, Thank You Letter, Antibiotic Education, Prescription Opioid Use. Follow up: Private Physician; When: 2 - 3 days; Reason: Recheck today's complaints, Continuance of care, Re-evaluation by your physician. Problem is new. Symptoms have improved. roverto 11:26 10:40 02/12/2020 10:38 Discharged to Home. Impression: Adverse effects, not elsewhere rb1 classified - vaccinesand other biological substances, initial encounter; Bradycardia, unspecified. Condition is Stable. Forms are Medication Reconciliation Form, Thank You Letter, Antibiotic Education, Prescription Opioid Use. Follow up: Private Physician; When: 2 - 3 days; Reason: Recheck today's complaints, Continuance of care, Re-evaluation by your physician. Problem is new. Symptoms have improved. roverto
[2020-02-12] MEDS ORDERED: DIPHENHYDRAMINE 50 MG/ML VIAL ONE (11:05)
[2020-02-12] MEDS ORDERED: FAMOTIDINE 20 MG/2 ML VIAL IV ONE (11:05)
[2020-02-13 11:30] VITALS: TEMP 97.7
[2020-02-13 11:33] VITALS: BP 143/65; O2SAT 98
--- NOTE | 2020-02-15 05:23 | EKG ---
Test Date: 2020-02-12 Test Time: 09:27:13 Lathe Operator: BRANDON MEASUREMENT RESULTS: Intervals: Rate: 41 AK: 190 QRSD: 120 QT: 522 QTc: 430 [place]: P: -2 AK: 190 QRS: 16 T: 33 INTERPRETIVE STATEMENTS: Marked sinus bradycardia Nonspecific intraventricular conduction delay Abnormal ECG Compared to ECG 11/07/2018 15:12:01 No significant changes Electronically Signed On 02-15-20 05:20:51 CDT by Chester Lee
== END 2020-02-12 11:26 | disposition home or self-care (01) ==
LOC: ER 08:30
DX: R00.1 Bradycardia, unspecified (principal); T88.1XXA Other complications following immunization, not elsewhere classified, initial encounter; I10 Essential (primary) hypertension; E78.5 Hyperlipidemia, unspecified; I48.91 Unspecified atrial fibrillation; Z79.01 Long term (current) use of anticoagulants
CPT/HCPCS: 93005; 85025; 36415; 84484; 80053; 71045; 96375; 96374; 99284; J1200